=== PATIENT | male | born 1990 | race Caucasian/White ===

== ENCOUNTER 2017-02-14 15:51 | Emergency (ER) | payer MEDICARE, OTHER ==
[2017-02-14] MEDS ORDERED: Lidocaine 1% w/Epinephrine 1:200K 30 ML VIAL ONE (16:29)
[2017-02-14] MEDS ORDERED: Adacel (T-DAP) 0.5 ML VIAL ONE (16:41)
--- NOTE | 2017-02-14 17:13 | RAD ---
THREE VIEWS RIGHT HAND 02/14/17 HISTORY: Cut right hand on fan while working on a car. FINDINGS: There is no evidence of a fracture, dislocation, or other osseous abnormality involving the right keating d. No radiopaque foreign body is seen. IMPRESSION: No acute osseous abnormality. POS: [facility]
[2017-02-14] MEDS ORDERED: Bacitracin Zinc 1 Packet ONE (17:21)
== END 2017-02-14 17:31 | disposition home or self-care (01) ==
LOC: ERS 15:51
DX: S61.411A Laceration without foreign body of right hand, initial encounter (principal); E03.9 Hypothyroidism, unspecified; F31.9 Bipolar disorder, unspecified; F17.210 Nicotine dependence, cigarettes, uncomplicated; W26.8XXA Contact with other sharp object(s), not elsewhere classified, initial encounter
CPT/HCPCS: 12002; 90471; 90715; 99406

== ENCOUNTER 2017-02-25 08:36 | Day surgery (SDC) | payer MEDICARE, MEDICAID ==
[2017-02-24 13:05] VITALS: BMI 26.6
[2017-02-25] MEDS ORDERED: CEFAZOLIN/Water 2 GM/20 ML SYRINGE ONE (09:12)
[2017-02-25 10:05] LABS: #Eosinphils 0.2 thou/uL (0.0-0.7); #Lymphocytes 1.7 thou/uL (1.20-3.40); #Monocytes 0.2 thou/uL (0.11-0.59); #Neutrophils 2.1 thou/uL (1.40-6.50); %Eosinophils 3.6 % (0.0-10.0); %Lymphocytes 39.7 % (21.0-51.0); %Monocytes 5.5 % (0.0-10.0); Mean Platelet Volume 7.4 fL (7.4-10.4); Red Blood Cell (RBC) Count 4.56 mill/uL (4.70-6.10); White Blood Cell (WBC) Count 4.2 thou/uL (4.8-10.8)
[2017-02-25] MEDS ORDERED: Sodium Chloride 0.9% 10 ML ONE (10:30)
[2017-02-25] MEDS ORDERED: Bacitracin Zinc Ointment 30 gm TUBE ONE (10:30)
[2017-02-25] MEDS ORDERED: Bupivacaine PF 0.5% 30 ML VIAL ONE (10:30)
[2017-02-25] MEDS ORDERED: Betamet Acet/Betamet Na Ph 30 MG/5 ML VIAL ONE (10:30)
[2017-02-25] MEDS ORDERED: Midazolam HCl 2 mg/2 ml Vial ONE (10:31)
[2017-02-25] MEDS ORDERED: Fentanyl 250 MCG/5 ML VIAL ONE (10:31)
[2017-02-25] MEDS ORDERED: Ketorolac Tromethamine 30 MG/ML VIAL ONE ×2 (12:16→17:07)
[2017-02-25] MEDS ORDERED: Fentanyl 100 MCG/2 ML VIAL ONE (12:16)
[2017-02-25] MEDS ORDERED: Meperidine HCl/PF 25 MG/ML VIAL ONE (12:19)
--- NOTE | 2017-02-25 13:20 | OP ---
DATE OF PROCEDURE: 02/25/2017 PREOPERATIVE DIAGNOSES: Right small finger zone five extensor tendon laceration. POSTOPERATIVE FINDINGS: A complete laceration retinaculum and partial laceration of collateral ligam ent metacarpophalangeal joint, small ulnar aspect small finger. PROCEDURE PERFORMED: 1. Repair of retinaculum/extensor tendon zone 5. 2. Repair of collateral ligament partial laceration all with 4-0 Prolene, [id number] pattern. 3. Application of long arm splint. SURGEON: Aneudy Cloud M.D. TOURNIQUET TIME: 11 minutes. ESTIMATED BLOOD LOSS: 10 mL. ANESTHESIA: General LMA technique by [place] Anesthesia augmented by 12 mL 0.5% Marcaine metacarpop halangeal block level. DESCRIPTION OF PROCEDURE: After successful general endotracheal anesthesia, the patient had the limb prepped and draped. Timeout was done appropriately and the surgical consent matched the site, match ed the side and matched the procedure planned and the patient. We then had the limb exsanguinated, tourniquet inflated to 250 mmHg of pressure, and the incision misha t was already extended 5 mm distal and proximal. We exposed the entire extensor mechanism, we could easily see that the primary extensor mechanism was on top on the dorsum of the MP joint was not lacer ated, but the retinaculum was torn in its midsubstance and then just deep to that was a partial tear of the collateral ligament. We then irrigated the area, then prepared the ends for closure. Using a [id number] pattern, a buried knot technique with 4-0 Prolene, 2 sutures were then placed to repair the partial collateral ligament laceration while protecting the digital nerve the entire t viki and then the retinaculum was repaired dorsal to that, also superficial to that collateral. The p atient had excellent stability, he had no spring back with motion and there was no gap formation of t he retinaculum with 90 degrees of flexion. Tourniquet was deflated. Wound irrigated, hemostasis obtained. Wound was then closed in simple sutu re with 4-0 nylon interrupted pattern. Bulky dressing was applied. A total of 20 mL of 0.5% Marcain e were given just proximal to the incision at the neck shaft junction metacarpal small finger level.
[2017-02-25] MEDS ORDERED: Ondansetron HCl/PF 4 MG/2 ML Vial ONE (17:07)
[2017-02-25] MEDS ORDERED: Lidocaine 1% PF 5 ML VIAL ONE (17:07)
[2017-02-25] MEDS ORDERED: Propofol 200 MG/20 ML VIAL ONE (17:07)
== END 2017-02-25 13:18 | disposition home or self-care (01) ==
LOC: SDC 08:36
PROVIDERS: ATTEND Orthopaedic Surgery Hand Surgery
PROC: 0LQ70ZZ Repair Right Hand Tendon, Open Approach (ICD-10-PCS; principal; 2017-02-25)
DX: S56.427A Laceration of extensor muscle, fascia and tendon of right little finger at forearm level, initial encounter (principal)
CPT/HCPCS: 85025; 96374; A4216; J0131; J0702; J1885; J2001; J2175; J2250; J2405; J2704; J3010; J3490; S0020

== ENCOUNTER 2018-05-18 19:44 | Emergency (ER) | payer MEDICARE, MEDICAID ==
[2018-05-18] MEDS ORDERED: Adacel (T-DAP) 0.5 ML SYRINGE ONE (20:34)
== END 2018-05-18 21:22 | disposition home or self-care (01) ==
LOC: ERS 19:44
DX: S61.412A Laceration without foreign body of left hand, initial encounter (principal); E03.9 Hypothyroidism, unspecified; F17.210 Nicotine dependence, cigarettes, uncomplicated; F31.9 Bipolar disorder, unspecified; W26.0XXA Contact with knife, initial encounter
CPT/HCPCS: 90471; 90715

== ENCOUNTER 2019-05-16 11:07 | Emergency (ER) | payer MEDICAID, MEDICARE ==
[2019-05-16] MEDS ORDERED: Lidocaine 1% PF 5 ML VIAL ONE (12:14)
[2019-05-16] MEDS ORDERED: Ibuprofen 200 MG TAB ONE (12:57)
== END 2019-05-16 13:07 | disposition home or self-care (01) ==
LOC: ERS 11:07
DX: L02.11 Cutaneous abscess of neck (principal); E03.9 Hypothyroidism, unspecified; F17.210 Nicotine dependence, cigarettes, uncomplicated; F17.290 Nicotine dependence, other tobacco product, uncomplicated
CPT/HCPCS: 10060; 87070; 87205; J2001

== ENCOUNTER 2019-05-17 11:12 | Emergency (ER) | payer MEDICARE ==
[2019-05-17] MEDS ORDERED: Bacitracin 1 PK ONE (11:36)
== END 2019-05-17 11:49 | disposition home or self-care (01) ==
LOC: ERS 11:12
DX: Z48.817 Encounter for surgical aftercare following surgery on the skin and subcutaneous tissue (principal); F31.9 Bipolar disorder, unspecified; F17.290 Nicotine dependence, other tobacco product, uncomplicated; E03.9 Hypothyroidism, unspecified
CPT/HCPCS: 99282

== ENCOUNTER 2019-05-19 12:41 | Emergency (ER) | payer MEDICARE ==
[2019-05-19] MEDS ORDERED: Bacitracin 1 PK ONE (13:36)
== END 2019-05-19 13:38 | disposition home or self-care (01) ==
LOC: ERS 12:41
DX: L02.212 Cutaneous abscess of back [any part, except buttock and flank] (principal); E03.9 Hypothyroidism, unspecified; F31.9 Bipolar disorder, unspecified; F17.290 Nicotine dependence, other tobacco product, uncomplicated
CPT/HCPCS: 99282